=== PATIENT | female | born 1975 | race Caucasian/White ===

== ENCOUNTER 2022-12-10 05:18 | Emergency (ER) | payer BC, SELFPAY ==
[2022-12-10 05:24] VITALS: BP 121/63; PULSE 72; RESP 18; TEMP 36.8; O2SAT 97; BMI 35.4
--- NOTE | 2022-12-10 05:32 | CRLHL7_ITS ---
For Patients: As a result of the Century Cures Act, medical imaging exams and procedure reports are released immediately into your electronic medical record. You may view this report before your referring provider. If you have questions, please contact your health care provider. INDICATION: SOB TECHNIQUE: Chest 2 views. COMPARISON: None. FINDINGS: Cardiovascular and mediastinum: Heart size and vasculature are normal in caliber and appearance. Lungs and pleural spaces: Lungs are clear. No sign of infiltrate. No sign of pleural effusion. No pneumothorax. Bones and soft tissues: No significant findings. IMPRESSION: No evidence of acute cardiopulmonary process. Dictated by Keyon Mosqueda MD @ 12/10/2022 6:27:22 AM (Electronically Signed)
--- NOTE | 2022-12-10 05:47 | ED.GENADULT ---
HPI - General Adult General Date Seen: 12/10/22 Chief complaint: Shortness of Breath/Dyspnea Stated complaint: hard time breathing Time Seen by Provider: 12/10/22 05:21 Source: patient Mode of arrival: ambulatory Limitations: no limitations History of Present Illness HPI narrative: Patient is a 47-year-old woman who reports an underlying history of asthma and so she has been having difficulty with shortness of breath for the past couple of days which she feels is a flare of her asthma. She says it has been human at work which she thinks is making things worse. She has not had a fever, mild cough. Throat feels kind of scratchy as a result. No sore throat. Tonight she was feeling like it was very hard to catch her breath in her chest started to feel tight and she was feeling very anxious. She now feels better. She says that anxiety makes things worse when she starts to have trouble breathing. She has been using her albuterol inhaler regularly over the past couple of days. No unusual leg pain or swelling. No pleuritic chest pain. No history of DVT or PE, she does not take control pills, does not smoke. Related Data Home Medications Medication Instructions Recorded Confirmed albuterol sulfate 90 mcg/actuation 1 - 2 inh inhalation Q6H PRN 12/10/22 12/10/22 aerosol inhaler (Proventil HFA) buspirone 10 mg tablet 20 mg PO BID 12/10/22 12/10/22 escitalopram oxalate 20 mg tablet 20 mg PO QAM 12/10/22 12/10/22 levothyroxine 100 mcg tablet 100 mcg PO QAM 12/10/22 12/10/22 (Euthyrox) phentermine 37.5 mg tablet 37.5 mg PO QAM 12/10/22 12/10/22 Allergies Allergy/AdvReac Type Severity Reaction Status Date / Time No Known Drug Allergies Allergy Verified 12/10/22 05:26 Review of Systems Status of ROS: Reports: 10 or more systems reviewed and unremarkable except as noted in History and below [facility] Medical History Anxiety ?F41.9 - Anxiety disorder, unspecified (ICD-10) Depression ?F32.A - Depression, unspecified (ICD-10) Menorrhagia ?N92.0 - Excessive and frequent menstruation with regular cycle (ICD-10) Kidney stones ?N20.0 - Calculus of kidney (ICD-10) Hypothyroidism ?E03.9 - Hypothyroidism, unspecified (ICD-10) Hyperthyroidism ?E05.90 - Thyrotoxicosis, unspecified without thyrotoxic crisis or storm (ICD-10) Gout ?M10.9 - Gout, unspecified (ICD-10) Asthma ?J45.909 - Unspecified asthma, uncomplicated (ICD-10) Surgical History History of thyroidectomy ?E89.0 - Postprocedural hypothyroidism (ICD-10) History of fasciotomy ?Z98.890 - Other specified postprocedural states (ICD-10) History of nasal surgery ?Z98.890 - Other specified postprocedural states (ICD-10) History of endometrial ablation ?Z98.890 - Other specified postprocedural states (ICD-10) History of hysterectomy ?Z90.710 - Acquired absence of both cervix and uterus (ICD-10) History of laparoscopic cholecystectomy ?Z90.49 - Acquired absence of other specified parts of digestive tract (ICD-10) History of arthroscopy of left knee ?Z98.890 - Other specified postprocedural states (ICD-10) History of carpal tunnel release ?Z98.890 - Other specified postprocedural states (ICD-10) Social History Smoking Status: Never smoker Second hand tobacco smoke exposure: No How often do you have a drink containing alcohol: never How often do you have six or more drinks on one occasion: Never AUDIT-C Alcohol total score: 0 Non-prescribed substance use: denies use Exam Narrative: Exam Narrative: Vital signs as noted above. In general, an alert, well-appearing patient. Head: Normocephalic, atraumatic. Eyes: Pupils are equal reactive. Extraocular movements are full. Conjunctivae are normal. ENT: Mucous membranes are moist. Throat is normal. Neck: Supple without lymphadenopathy. Heart: Regular rate and rhythm. No murmur or rub. Lungs: Clear bilaterally. No increased work of breathing, crackles or wheezes. Abdomen: Soft and nontender. No organomegaly. Extremities: Well perfused. No edema. No calf tenderness. Pulses intact. Neurologic: Patient is alert and oriented to person and place. Speech is fluent. Face is symmetric. Moves all extremities equally. Affect: Normal. Skin: Warm and dry. Well perfused. Const: Vital Signs, click to edit/add: Vital Signs - 24 hr 12/10/22 05:24 Temperature 98.2 F Pulse Rate [Right Pulse Oximeter] 72 Respiratory Rate 18 Blood Pressure [Ri ght Upper Arm] 121/63 Pulse Oximetry 97 Oxygen Delivery Me thod Room Air Documenting provider has reviewed patient's vital signs: yes Course Course Hospital Course: Lungs are clear, vital signs are normal, symptoms are improved. Certainly possible this represents flare asthma whether viral or environmental. Will get a chest x-ray to rule out other findings such as pulmonary edema, infiltrate, pleural effusion, CBC to rule out anemia or signs of infection, BNP, troponin. Acute coronary syndrome felt to be lower likelihood given absence of risk factors and persistence of symptoms over the past couple of days. EKG shows a normal sinus rhythm, ventricular rate of 67. Poor R-wave progression, T-waves are somewhat flat knee anterior leads. No acute ST segment changes. Labs are normal, troponin is 0.01, BNP is 67. Hemoglobin very mildly low at 11.7, white count normal. Metabolic panel is unremarkable aside from a mildly low potassium of 3.3. She continues to feel well. I do not find any evidence here of acute abnormalities and would recommend treatment for an asthma exacerbation. Prednisone prescribed. Follow up with primary care next week if not improving over the weekend, return at any time for acute worsening or new symptoms such as fever or significant chest pain. Vital Signs Vital signs: Initial Vital Signs Temperature 98.2 F 12/10/22 05:24 Temperature Source Temporal Artery Scan 12/10/22 05:24 Pulse Rate 72 12/10/22 05:24 Respiratory Rate 18 12/10/22 05:24 Respiratory Effort Spontaneous, Non-Labored 12/10/22 05:24 Respiratory Depth Normal 12/10/22 05:24 Respiratory Pattern Normal 12/10/22 05:24 Blood Pressure 121/63 12/10/22 05:24 Blood Pressure Mean 82 12/10/22 05:24 Blood Pressure Position Supine 12/10/22 05:24 Pulse Oximetry 97 12/10/22 05:24 Oxygen Delivery Method Room Air 12/10/22 05:24 Vital Signs Temperature 98.2 F 12/10/22 05:24 Pulse Rate 72 12/10/22 05:24 Respiratory Rate 18 12/10/22 05:24 Blood Pressure 121/63 12/10/22 05:24 Pulse Oximetry 97 12/10/22 05:24 Oxygen Delivery Method Room Air 12/10/22 05:24 Temperature 98.2 F 12/10/22 05:24 Pulse Rate 72 12/10/22 05:24 Respiratory Rate 18 12/10/22 05:24 Blood Pressure 121/63 12/10/22 05:24 Pulse Oximetry 97 12/10/22 05:24 Oxygen Delivery Method Room Air 12/10/22 05:24 Medical Decision Making Lab Data Labs: Lab Results 12/10/22 12/10/22 Range/Units 05:45 05:50 WBC 7.09 (4.50-11.00) K/uL RBC 3.91 L (4.00-5.20) m/uL Hgb 11.7 L (12.0-16.0) gm/dL Hct 35.5 (33.0-51.0) % MCV 91 (80-100) fL MCH 30 (26-34) pg MCHC 33 (32-36) gm/dL RDW Coeff of Giuliano 12.9 (11.5-15.5) % Plt Count 276 (140-440) K/uL Neut % (Auto) 66.7 (42.0-72.0) % Lymph % (Auto) 25.0 (20-44) % Pershing % (Auto) 5.4 (0.0-11.0) % Eos % (Auto) 2.3 (0.0-7.0) % Baso % (Auto) 0.6 (0.0-3.0) % Neut # (Auto) 4.74 (1.7-7.0) K/uL Lymph # (Auto) 1.77 (0.90-2.90) K/uL Pershing # (Auto) 0.40 (0.00-0.90) K/UL Eos # (Auto) 0.16 (0.00-0.50) K/uL Baso # (Auto) 0.04 (0.00-0.30) K/uL Sodium 137 (135-149) mmol/L Potassium 3.3 L (3.6-5.1) mmol/L Chloride 102 (96-114) mmol/L Carbon Dioxide 24 (20-32) mmol/L BUN 16 (5-24) mg/dL Creatinine 0.8 (0.5-1.5) mg/dL Estimated Creat Clear 76.54 Estimated GFR 90 ml/min Glucose 93 (60-115) mg/dL Calcium 9.1 (8.4-10.6) mg/dL NT-Pro-B Natriuret Pep 67 pg/mL POC Troponin I 0.01 (0.01-0.04) ng/ml Discharge Plan Discharge Clinical Impression: Asthma with acute exacerbation Patient Disposition: Home, Self-Care Condition: Improved Instructions: Asthma (DC) Additional Instructions: Continue use of albuterol as needed. Prednisone as prescribed. Follow-up with primary care next week if not improving over the weekend. Return at any time for acute worsening, high fevers, severe chest pain or other changes. Prescriptions: No Action phentermine 37.5 mg tablet 37.5 mg PO QAM levothyroxine [Euthyrox] 100 mcg tablet 100 mcg PO QAM buspirone 10 mg tablet 20 mg PO BID escitalopram oxalate 20 mg tablet 20 mg PO QAM albuterol sulfate [Proventil HFA] 90 mcg/actuation HFA aerosol inhaler 1 - 2 inh inhalation Q6H PRN Follow Up/Referrals: Provider,Not a Local [Primary Care Provider] - Stand Alone Forms: [facility] ([facility]) Info Instructions
[2022-12-10 05:53] LABS: Basophils Absolute Auto 0.04 K/uL (0.00-0.30); Basophils Percent Auto 0.6 % (0.0-3.0); Eosinophils Absolute Auto 0.16 K/uL (0.00-0.50); Eosinophils Percent Auto 2.3 % (0.0-7.0); Hematocrit 35.5 % (33.0-51.0); Hemoglobin* 11.7 gm/dL (12.0-16.0); Lymphocytes Absolute Auto 1.77 K/uL (0.90-2.90); Mean Corpuscular HGB Conc 33 gm/dL (32-36); Mean Corpuscular Hemoglobin 30 pg (26-34); Mean Corpuscular Volume 91 fL (80-100); Monocytes Percent Auto 5.4 % (0.0-11.0); Neutrophils Absolute Auto 4.74 K/uL (1.7-7.0); Neutrophils Percent Auto 66.7 % (42.0-72.0); Platelet Count* 276 K/uL (140-440); RDW Coefficient of Variation % 12.9 % (11.5-15.5); Red Blood Count 3.91 m/uL (4.00-5.20); White Blood Count* 7.09 K/uL (4.50-11.00)
[2022-12-10 05:56] LABS: Slide Review Reflex No
[2022-12-10 06:01] LABS: Troponin, Point-of-Care* 0.01 ng/ml (0.01-0.04)
[2022-12-10 06:07] LABS: Chloride* 102 mmol/L (96-114); Potassium* 3.3 mmol/L (3.6-5.1); Sodium* 137 mmol/L (135-149)
[2022-12-10 06:10] LABS: Blood Urea Nitrogen* 16 mg/dL (5-24); Carbon Dioxide* 24 mmol/L (20-32); Creatinine* 0.8 mg/dL (0.5-1.5); Est. Creatinine Clearance* 76.54; Estimated Glomerular Filt Rate 90 ml/min; Glucose* 93 mg/dL (60-115)
[2022-12-10 06:11] LABS: Calcium* 9.1 mg/dL (8.4-10.6)
[2022-12-10 06:20] LABS: NT Pro B Type NatriureticPept* 67 pg/mL
[2022-12-10 06:38] VITALS: BP 119/74; PULSE 74; RESP 18; TEMP 36.8; O2SAT 98
[2022-12-10 06:39] VITALS: BP 119/74; PULSE 74; RESP 18; TEMP 36.8
== END 2022-12-10 06:39 | disposition home or self-care (01) ==
PROVIDERS: Emergency Provider Emergency Medicine
DX: J45.901 Unspecified asthma with (acute) exacerbation (principal)
CPT/HCPCS: 36415; 71046; 80048; 83880; 84484; 85025; 93005; 99284